=== PATIENT | male | born 1980 | race Caucasian/White ===

== ENCOUNTER 2023-04-08 13:29 | Emergency (ER) | payer MEDICAID, SELFPAY ==
[2023-04-08 13:50] VITALS: BP 136/91; PULSE 95; RESP 16; TEMP 36.8; O2SAT 100
--- NOTE | 2023-04-08 14:07 | ED.GENADULT ---
HPI - General Adult General Chief complaint: Urogenital-Male Stated complaint: left side pain,urinating frequently Time Seen by Provider: 04/08/23 14:07 Source: patient, RN notes reviewed and old records reviewed Mode of arrival: ambulatory Limitations: no limitations History of Present Illness HPI narrative: 42-year-old male presents to the [facility] with complaints of urinary frequency only in the mornings when he wakes up. Patient states he has urinates 15-20 times the 1st 2 hours he is awake. Denies any penile discharge. No testicular tenderness. Denies any pain with urination. denies any rashes. Denies lower abdominal pain. Onset (ago): week(s) (1) Related Data Home Medications Medication Instructions Recorded Confirmed No Home Medications 04/08/23 04/08/23 Allergies Allergy/AdvReac Type Severity Reaction Status Date / Time NONE PER PT Allergy Uncoded 02/27/11 07:17 Review of Systems Review of Systems: All systems reviewed & are unremarkable except as noted in HPI and below Constitutional: Constitutional: Reports no additional constitutional complaints Eyes: Eyes: Reports no additional eye complaints ENT: Reports system reviewed and no additional complaints, except as documented Cardiovascular: Cardiovascular: Reports no additional cardiovascular complaints, Denies chest pain and Denies dyspnea Respiratory: Respiratory: Reports no additional respiratory complaints, Denies chest congestion, Denies cough and Denies dyspnea Gastrointestinal: Gastrointestinal: Reports no additional gastrointestinal complaints, Denies abdominal pain, Denies nausea and Denies vomiting Genitourinary: Genitourinary: Reports as per HPI and Reports urinary frequency Musculoskeletal: Musculoskeletal: Reports no additional musculoskeletal complaints Integumentary/Breasts: Skin/Breast: Reports system reviewed and no additional complaints, except as docu Neurologic: Reports system reviewed and no additional complaints, except as documented Psychiatric: Psychiatric: Reports no additional psychiatric complaints Allergic/Immunologic: Allergic/Immunologic: Reports no additional allergic/immunologic complaints PMFSH Comments At the time of my signature, I reviewed and agree with the nursing past medical, surgical, social, and family history. There is no relevant family history pertinent to the patient complaint. Exam Const: General: cooperative, healthy appearing, comfortable, no acute distress, well developed, alert and well nourished Nutritional Appearance: well nourished Orientation/consciousness: patient oriented x3 Limitations: no limitations HENMT: Head: normal to inspection Ears: hearing grossly normal bilaterally and external ears normal Face/Nose/Sinus: Normal external nose present, Normal nares present, Normal nasal mucous membranes and turbinates present, normal facial exam and face symmetric Face and sinus: normal facial exam and face symmetric Eyes: General: appearance normal, both eyes and all related structures Alignment and Position: alignment normal Periorbital: periorbital findings normal Pupils: Equal, round and reactive pupils present EOM: EOMs intact bilaterally Neck: Neck: normal visual inspection, full ROM, no lymphadenopathy and no meningeal signs Chest: Chest palpation & inspection: normal inspection of the chest Resp: Effort & Inspection: normal respiratory effort and able to speak in complete sentences Auscultation: clear to auscultation bilaterally, no crackles, no rales, no rhonchi and no wheezes Cardio: Rate: regular rate Rhythm: regular rhythm GI: GI Palp: No abdominal tenderness : General: Yes no CVA tenderness Back/Spine/Pelvis: Cervical Spine: cervical ROM normal Skin: General skin exam: normal color and no rashes or lesions noted Lesions: no lesions Rashes: no rashes Wounds: no wounds Neuro: General: patient oriented x3, gait normal, tone normal, moves all extremities a
== END 2023-04-08 14:18 | disposition home or self-care (01) ==
PROVIDERS: Emergency Provider Nurse Practitioner; PCP Family Medicine Adolescent Medicine
DX: R35.0 Frequency of micturition (principal)
CPT/HCPCS: 81003; 99212; G0463

== ENCOUNTER 2023-04-11 09:15 | Emergency (ER) | payer MEDICAID, SELFPAY ==
[2023-04-11 09:17] VITALS: BP 134/86; PULSE 90; RESP 16; TEMP 36.3; O2SAT 100
[2023-04-11 09:33] LABS: Glucose Point of Care 70 mg/dl (65-105)
[2023-04-11 09:44] LABS: Appearance Urine Clear (Clear); Bilirubin Urine Negative (Negative); Blood Urine Negative (Negative); Color Urine Yellow (Yellow); Glucose Urine UA Negative (Negative); Ketones Urine Negative (Negative); Leukocyte Esterase Ur Negative LEU/UL (Negative); Nitrate Urine Negative (Negative); Protein Urine Negative (Negative); Specific Grav Ur 1.013 (1.001-1.035); Urobilinogen Urine 0.2 mg/dL (<2.0)
[2023-04-11 10:03] LABS: Add Urine Microscopic? NO
[2023-04-11 11:03] VITALS: BP 132/91; PULSE 95; RESP 18; O2SAT 100
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
[2023-04-11 13:24] LABS: Trichomonas Vag PCR NOT DETECTED (NOT DETECTE)
[2023-04-11 13:49] LABS: Chlamydia trachomatis NOT DETECTED (NOT DETECTE); Neisseria gonorrhoeae PCR NOT DETECTED (NOT DETECTE)
--- NOTE | 2023-04-11 14:08 | PC.NURSE ---
PT NOT FOUND IN ROOM, BATHROOM OR WAITING ROOM. PRESUMED ELOPED.
== END 2023-04-11 14:08 | disposition left against medical advice (07) ==
PROVIDERS: Preventive Medicine Aerospace Medicine; Emergency Provider Student in an Organized Health Care Education/Training Program
DX: R35.0 Frequency of micturition (principal)
CPT/HCPCS: 81003; 82948; 87491; 87591; 87661; 99283

== ENCOUNTER 2023-05-06 14:38 | Emergency (ER) | payer MEDICAID, SELFPAY ==
--- NOTE | ~2023-05-06 | XR_ITS ---
XR ribs LT 2V 05/06/2023 16:05 Indication: Left rib pain. Procedure: Comparison: Findings: There are healed/healing heart size normal. Left shoulder is unremarkable. No focal soft ti ssue abnormality. No pneumothorax. Left seventh-ninth rib fractures anteriorly and laterally.. Impression: 1: Healed/healing left seventh-ninth rib fractures anterior laterally. Reviewed, dictated and finalized at location A. Impression: 1: Healed/healing left seventh-ninth rib fractures anterior laterally.
--- NOTE | ~2023-05-06 | XR_ITS ---
EXAMINATION: XR chest 2V 05/06/2023 14:59 INDICATION: History of left rib fractures. PROCEDURE: 2 views chest COMPARISON: No prior studies for comparison. FINDINGS: The lungs are clear. The cardiomediastinal silhouette is within normal limits. There are no pleural effusions. There is no pneumothorax suspected. IMPRESSION: 1: NO ACUTE CARDIOPULMONARY DISEASE. Reviewed, dictated and finalized at location A.
[2023-05-06 14:48] VITALS: BP 137/80; PULSE 97; RESP 16; TEMP 37; O2SAT 99
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
== END 2023-05-06 16:43 | disposition home or self-care (01) ==
PROVIDERS: Emergency Provider Registered Nurse
DX: S22.42XD Multiple fractures of ribs, left side, subsequent encounter for fracture with routine healing (principal); V19.9XXD Pedal cyclist (driver) (passenger) injured in unspecified traffic accident, subsequent encounter; F17.210 Nicotine dependence, cigarettes, uncomplicated
CPT/HCPCS: 71046; 71100; 99213; G0463

== ENCOUNTER 2023-11-29 16:35 | Emergency (ER) | payer OTHER, SELFPAY ==
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
[2023-11-29 16:46] VITALS: BP 148/91; PULSE 74; RESP 20; TEMP 36.4; O2SAT 100
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
[2023-11-29] MEDS: ACETAMINOPHEN 500 MG TABLET 1000 MG PO (18:24)
== END 2023-11-29 18:33 | disposition home or self-care (01) ==
PROVIDERS: Emergency Provider Physician Assistant
DX: S42.035A Nondisplaced fracture of lateral end of left clavicle, initial encounter for closed fracture (principal); S09.90XA Unspecified injury of head, initial encounter; F17.210 Nicotine dependence, cigarettes, uncomplicated; V28.49XA Other motorcycle driver injured in noncollision transport accident in traffic accident, initial encounter
CPT/HCPCS: 70450; 73000; 73030; 96372; 99284; A4565; A9270

== ENCOUNTER 2024-01-15 14:47 | Outpatient (CLI) | payer OTHER, SELFPAY ==
--- NOTE | ~2024-01-15 | XR_ITS ---
XR clavicle LT Ordering provider: Robin Pierson MD History: . S42.002A - Fracture of unspecified part of left clavicle,... . Comparison: December 18, 2023 FINDINGS: BONES: Healing fracture in the distal left clavicle. JOINT SPACES: Normal. No acromioclavicular separation. SOFT TISSUES: Normal. IMPRESSION: No healing fracture in the distal left clavicle. No change in alignment.. Reviewed, dictated and finalized at location A.
== END 2024-01-15 14:48 | disposition home or self-care (01) ==
LOC: ANHIMG 14:50
PROVIDERS: Visit Provider Orthopaedic Surgery
DX: S42.002D Fracture of unspecified part of left clavicle, subsequent encounter for fracture with routine healing (principal); X58.XXXD Exposure to other specified factors, subsequent encounter
CPT/HCPCS: 73000

== ENCOUNTER 2024-12-31 06:35 | Emergency (ER) | payer SELFPAY ==
--- NOTE | ~2024-12-31 | XR_ITS ---
XR abdomen/kub 1V Ordering provider: Felecia English MD History: . Constipation X A COUPLE OF DAYS . Comparison: None. FINDINGS: BOWEL: Nonobstructive bowel gas pattern. ORGANOMEGALY: None. SIGNIFICANT PATHOLOGIC CALCIFICATIONS: None. OTHER: No free air is seen under the diaphragm. IMPRESSION: NO ACUTE ABDOMINAL FINDINGS. Reviewed, dictated and finalized at location A.
[2024-12-31 06:40] VITALS: BP 137/90; PULSE 66; RESP 18; TEMP 36.6; O2SAT 100
[2024-12-31 06:55] LABS: Basophils Percent Auto 0.5 % (0.2-1.2); Eosinophils Absolute Auto 0.3 K/mm3 (0-0.3); Eosinophils Percent Auto 5.9 % (0-4.4); Hematocrit 43.9 % (42.0-52.0); Hemoglobin 14.2 g/dL (14.0-18.0); Immature Granulocyte Absolute 0.02 K/mm3 (0.00-0.031); Immature Granulocyte Percent A 0.4 % (0-0.5); Lymphocytes Absolute Auto 1.45 K/mm3 (0.9-3.2); Lymphocytes Percent Auto 25.9 % (18.3-44.2); Mean Corpuscular HGB Conc 32.3 g/dl (32-36); Mean Corpuscular Hemoglobin 28.1 pg (26-34); Mean Corpuscular Volume 86.8 fl (80-100); Monocytes Absolute Auto 0.5 K/mm3 (0.1-0.6); Monocytes Percent Auto 8.1 % (2.6-8.5); Neutrophils Absolute Auto 3.3 K/mm3 (1.3-6.7); Neutrophils Percent Auto 59.2 % (45.5-73.1); Platelet Count Result 260 k/mm3 (150-375); Red Blood Count 5.06 M/mm3 (4.6-6.20); Red Cell Distribution Width 12.7 % (11.5-14.5); White Blood Count 5.6 K/mm3 (4.5-10.0)
--- NOTE | 2024-12-31 07:03 | ED.GIBLEED ---
HPI - GI Bleed General Chief complaint: GI Bleed Stated complaint: rectal bleeding and cannot have a BM Time Seen by Provider: 12/31/24 07:00 Source: patient Mode of arrival: ambulatory Limitations: no limitations History of Present Illness HPI Narrative: 44 years old white male came to the ED complaining of rectal bleeding while straining hard to have a bowel movement. History of constipation all his life, bowel movement 1-2 times a week. He denies any fever, chills, nausea, vomiting, abdominal pain. Patient does not take medicine at home, does not drink alcohol. Related Data Allergies Allergy/AdvReac Type Severity Reaction Status Date / Time No Known Allergies Allergy Verified 12/04/23 10:00 Review of Systems Review of Systems: All systems reviewed & are unremarkable except as noted in HPI and below PMFSH Past Medical History Medical History Rib fractures Social History Social History Smoking status: Current every day smoker Tobacco type: cigarettes Substance use type: does not use Do You Feel Safe in your Home?: Yes Lack of Transportation: No Lack of Food: Never True Current Housing: I Have Housing Concerned About Future Housing: No Difficulty Paying Gas/Electric Bills: No Difficulty Paying for Meds: No Currently Unemployed: Decline to Answer Education: High School Diploma/GED Difficulty w/ Childcare or Family Care: No Gender identity (if verbalized by the patient): Male Exam Narrative: General appearance: Well-developed, well-nourished Skin: Normal color Head: Normocephalic, nontraumatic Eyes: Clear conjunctiva ENT: Oropharynx normal, ears normal, nose normal Neck: Supple, nontender Chest and respiratory: Airway patent, no respiratory distress, no accessory muscle use Heart: Regular rate/rhythm Abdomen: Soft, nontender, no organomegaly, quiet bowel sounds rectal exam showing liquidy, pinkish stool guaiac positive, diffuse anal tenderness Musculoskeletal: Normal range of motion, nontender back Neurologic: Alert and oriented ?3, TOBACCO CHECKOUT CLERK is normal as tested, no gross motor deficit Course Vital Signs Vital signs: Vital Signs Temperature 36.6 C 12/31/24 06:40 Pulse Rate 66 12/31/24 06:40 Respiratory Rate 18 12/31/24 06:40 Blood Pressure 137/90 12/31/24 06:40 Pulse Oximetry 100 12/31/24 06:40 Oxygen Delivery Room Air 12/31/24 06:40 Temperature 36.6 C 12/31/24 06:40 Pulse Rate 62 12/31/24 10:01 Respiratory Rate 15 12/31/24 10:01 Blood Pressure 119/76 12/31/24 10:01 Pulse Oximetry 100 12/31/24 10:01 Oxygen Delivery Room Air 12/31/24 06:40 MDM - GI Bleed MDM Narrative Medical decision making narrative: Patient presents with anal bleed after straining for bowel movement Vital signs are stable Physical examination showing liquid stool pinkish at the anal area, slight anal tenderness Differential diagnosis include constipation, anal irritation, hemorrhoids, less likely GI bleed Blood workup today includes CBC, CMP showed no acute abnormalities KUB showed no acute abnormalities Diagnosis hemorrhoids versus anal fissure, rectal bleed Discharge home on Anusol, Colace and follow-up with blocking machine operator second next week Discharge the pt was discharged to home.the pt,s condition upon discharge was fair,education was provided to the pt in reference to the final impression,discharge study results,treatment,prognosis and need for follow up . Differential Diagnosis Differential diagnosis: Likely other (As above) Medical Records Attestation: I reviewed the patient's medical records. Lab Data Attestation: I reviewed the patient's lab results. 12/31/24 06:50 12/31/24 06:50 Labs: Lab Results 12/31/24 Range/Units 06:50 WBC 5.6 (4.5-10.0) K/mm3 RBC 5.06 (4.6-6.20) M/mm3 Hgb 14.2 (14.0-18.0) g/dL Hct 43.9 (42.0-52.0) % MCV 86.8 (80-100) fl MCH 28.1 (26-34) pg MCHC 32.3 (32-36) g/dl RDW 12.7 (11.5-14.5) % Plt Count 260 (150-375) k/mm3 MPV 11.0 H (7.4-10.4) fl Immature Gran % (Auto) 0.4 (0-0.5) % Neut % (Auto) 59.2 (45.5-73.1) % Lymph % (Auto) 25.9 (18.3-44.2) % [place] % (Auto) 8.1 (2.6-8.5) % Eos % (Auto) 5.9 H (0-4.4) % Baso % (Auto) 0.5 (0.2-1.2) % Lymph # (Auto) 1.45 (0.9-3.2) K/mm3 [place] # (Auto) 0.5 (0.1-0.6) K/mm3 Eos # (Auto) 0.3 (0-0.3) K/mm3 Baso # (Auto) 0.0 (0.0-0.1) K/mm3 Abs Immat Gran (auto) 0.02 (0.00-0.031) K/mm3 Absolute Neuts (auto) 3.3 (1.3-6.7) K/mm3 Absolute Nucleated RBC 0.000 (0.0-0.012) K/mm3 Nucleated RBC % 0.0 (0.0-0.2) % PT 12.8 (11.1-14.7) Seconds INR 1.0 APTT 28.2 (22.3-36.8) Seconds Sodium 142 (137-145) mmol/L Potassium 4.1 (3.4-5.0) mmol/L Chloride 107 (98-107) mmol/L Carbon Dioxide 26 (22-30) mmol/L Anion Gap 9 (4-12) mmol/L BUN 20 (9-20) mg/dL Creatinine 0.81 (0.7-1.3) mg/dL Estim Creat Clear Calc 119 ml/min Estimated GFR > 60 (59 - ) Glucose 113 H (65-110) mg/dL Calcium 9.3 (8.4-10.2) mg/dL Total Bilirubin 0.8 (0.2-1.3) mg/dL AST 31 (17-59) U/L ALT 19 (6-50) U/L Alkaline Phosphatase 112 (38-126) U/L Total Protein 7.9 (6.3-8.2) g/dL Albumin 4.4 (3.5-5.1) g/dL Blood Type O Negative Antibody Screen Negative Imaging Data Radiologist's impression: Impressions Abdomen X-Ray 12/31/24 08:41 IMPRESSION: NO ACUTE ABDOMINAL FINDINGS. Critical Care Time Critical Care Time Critical Care Time: No Discharge Plan Discharge Clinical Impression: Bright red rectal bleeding Patient Disposition: Home Condition: Stable Instructions: Rectal Bleeding (ED) Additional Instructions: Return if symptoms are worsening , call Dr. Multani for appointment, take Tylenol as as needed for aches and pain, continue home medications. Patient Language: Swedish Prescriptions: New hydrocortisone acetate [Anusol-HC] 25 mg suppository 25 mg RECTAL BID Qty: 20 0RF docusate sodium [Colace] 100 mg capsule 100 mg PO BID Qty: 20 0RF Follow-up/Referrals: PHYSICIAN,CYBER SECURITY CONSULTANT [Primary Care Provider] - Og Villagomez MD [Physician] - 01/04/25 Stand Alone Forms: Work/School Release IP
[2024-12-31 07:07] LABS: Prothrombin Time 12.8 Seconds (11.1-14.7)
[2024-12-31 07:08] LABS: Alanine Aminotransferase 19 U/L (6-50); Albumin Level 4.4 g/dL (3.5-5.1); Alkaline Phosphatase 112 U/L (38-126); Anion Gap 9 mmol/L (4-12); Aspartate Amino Transferase 31 U/L (17-59); Bilirubin,Total 0.8 mg/dL (0.2-1.3); Blood Urea Nitrogen 20 mg/dL (9-20); Calcium 9.3 mg/dL (8.4-10.2); Carbon Dioxide 26 mmol/L (22-30); Chloride 107 mmol/L (98-107); Estimated CRCL calculation 119 ml/min; Estimated Glomerular Filt Rate > 60; Glucose 113 mg/dL (65-110); Partial Thromboplastin Time 28.2 Seconds (22.3-36.8); Potassium 4.1 mmol/L (3.4-5.0); Sodium 142 mmol/L (137-145); Total Protein 7.9 g/dL (6.3-8.2)
--- NOTE | 2024-12-31 07:48 | PC.NURSE ---
CBCD and CMP orders at 0737 duplicate. Cancel per EDP English
[2024-12-31 08:49] VITALS: BP 124/80; PULSE 67; RESP 17; O2SAT 100
[2024-12-31 09:01] VITALS: BP 112/74; PULSE 55; RESP 12; O2SAT 100
[2024-12-31 09:31] VITALS: BP 123/76; PULSE 58; RESP 13; O2SAT 100
[2024-12-31 10:01] VITALS: BP 119/76; PULSE 62; RESP 15; O2SAT 100
== END 2024-12-31 11:21 | disposition home or self-care (01) ==
PROVIDERS: Emergency Medicine; Emergency Provider Emergency Medicine
DX: K62.5 Hemorrhage of anus and rectum (principal); F17.210 Nicotine dependence, cigarettes, uncomplicated
CPT/HCPCS: 36415; 74018; 80053; 85025; 85610; 85730; 86850; 86900; 86901; 99283